=== PATIENT | male | born 1965 | race Caucasian/White ===

== ENCOUNTER 2024-05-15 04:17 | Emergency (ER) | payer MEDICAID, SELFPAY ==
--- NOTE | 2024-05-15 04:23 | XR_ITS ---
Examination: Duplex scan of the lower extremity, unilateral left complete Date and time of exam: May 15, 2024 at 0443 hrs. Indications: Onset left lower leg pain beginning this week Technique: Duplex scan of the extremity veins using B-mode/grayscale imaging and Doppler spectral analysis and color flow Attention is directed to internal echogenicity, compression and augmentation involving these veins, color flow assessment, spectral analysis Findings: Major deep venous structures in the extremity demonstrate normal course and caliber. There is no evidence of deep vein thrombosis. Normal color flow and spectral analysis Impression: Negative for DVT..
--- NOTE | 2024-05-15 04:23 | PD.EDRME ---
Rapid Medical Screening Exam RME Arrival date/time: 05/15/24 04:17 58M with history of HTN and BPH presents to ED with 4 days of worsening L low back pain that radiates down LLE. Patient denies SOB and fall/trauma. Chief Complaint: Back Pain/Injury
[2024-05-15 04:24] VITALS: BP 152/95; PULSE 63; RESP 19; TEMP 36.5; O2SAT 97; BMI 27.3
[2024-05-15] MEDS: GABAPENTIN 300 MG CAPSULE PO (05:09)
[2024-05-15] MEDS: KETOROLAC INJ 60 MG/2 ML VIAL IM (05:10)
--- NOTE | 2024-05-15 05:56 | PRELIM_ITS ---
Left lower extremity venous Doppler ultrasound. May 15, 2024 0443 hoursClinical history: r/o DVT Technique: Duplex scan of the left lower extremity deep venous systems was performed utilizing 2D gra yscale imaging, Doppler spectral analysis and color flow Doppler and with compression.Comparison: No prior study is available for comparison. Findings:Monteiro scale, color flow and spectral Doppler evaluat ion of the left lower extremity deep veins was performed.The common femoral, superficial femoral and popliteal veins are patent and compressible. Normal respiratory variation is noted. There is no evide nce of occlusive or nonocclusive thrombus. The peroneal and posterior tibial veins are patent.The gre at saphenous vein is patent and compressible at the level of the saphenofemoral junction.Impression:N o sonographic evidence of deep venous thrombosis in the left lower extremity. Report Electronically S igned By: Abraham Acosta 05/15/2024 5:56:30 AM [EST]
--- NOTE | 2024-05-15 06:53 | PD.EDBACK ---
ED Back Injury Pain RME/HPI General Chief Complaint: Back Pain/Injury Stated Complaint: LEFT LOWER BACK PAIN RADIATING TO LEG Time Seen by Provider: 05/15/24 06:31 Source: patient Arrival date/time: 05/15/24 04:17 This is a 58-year-old male who presents to the emergency department with complaints of left posterior thigh and calf pain for 4 days. Patient states his pain originates on the left buttocks and radiates down his leg. Denies any lower back or left leg injury. Patient did not attempt any interventions or take any OTC medications prior to ED visit. Patient denies any other associated symptoms or aggravating factors. No modifying factors, no radiation, no migration. Limitations: no limitations RME / HPI RME / HPI Narrative: 05/15/24 04:17 58M with history of HTN and BPH presents to ED with 4 days of worsening L low back pain that radiates down LLE. Patient denies SOB and fall/trauma. Related Data Home Medications ?Medication ?Instructions ?Recorded ?Confirmed aspirin 81 mg tablet,delayed 81 mg PO QDAY 12/05/23 02/17/24 release lisinopril 20 mg tablet 20 mg PO QDAY 12/05/23 02/17/24 tamsulosin 0.4 mg capsule 0.4 mg PO QHS 12/05/23 02/17/24 Previous Rx's ?Medication ?Instructions ?Recorded gabapentin 100 mg capsule 100 mg PO TID PRN leg pain #20 caps 05/15/24 ibuprofen 600 mg tablet 600 mg PO Q8H PRN pain #30 tabs 05/15/24 Allergies Allergy/AdvReac Type Severity Reaction Status Date / Time NKA* Allergy Uncoded 05/15/24 04:20 Review of Systems Review of Systems Systems Reviewed: All systems reviewed, normal except as documented Narrative Review of Systems: Gen: No fever, no chills, no weight loss EYES: No discharge, no visual changes, no pain HEENT: No ear pain, no congestion, no sore throat PULM: No shortness of breath, no cough, no congestion CV: No chest pain, no dyspnea on exertion, no palpitations GI: No nausea, no vomiting, no diarrhea, no pain, no constipation : No frequency, no urgency, no dysuria Musc/skel: No joint pain, Left buttock pain Skin: No rash Psyc: No hallucinations, no depression Heme/Lymph: No easy bleeding or bruising tendencies Neuro: No weakness, no headache ED Exam General Limitations: Present no limitations General appearance: Present alert and in no apparent distress Head Head exam: Present atraumatic Eye Eye exam: Present normal appearance, PERRL and EOMI ENT ENT exam: Present normal exam, normal oropharynx and mucous membranes moist Neck Neck exam: Present normal inspection, full ROM and trachea midline Chest Chest inspection: Present normal inspection and symmetric chest wall rise Respiratory Respiratory exam: Present normal lung sounds bilaterally Cardiovascular Cardiovascular exam: Present regular rate, normal rhythm and normal heart sounds Abdominal Exam Abdominal exam: Present soft and normal bowel sounds Extremities Exam Extremities exam: Present normal inspection and full ROM Back Exam Back exam: Present normal inspection and full ROM Neurological Exam Neurological exam: Present alert, oriented X3 and CN II-XII intact Psychiatric Psychiatric exam: Present normal affect and normal mood Skin Skin exam: Present warm, dry, intact and normal color Course Quality Measures none Orders Category Date Time Status US venous doppler LE LT Stat Exams 05/15/24 04:23 Taken Gabapentin [Neurontin] Med 05/15/24 05:02 Discontinued 300 mg PO X1 ONE Ketorolac Inj [Toradol Inj] Med 05/15/24 05:02 Discontinued 60 mg IM X1 ONE Vital Signs Vital signs: Vital Signs Temperature 97.7 F 05/15/24 04:24 Pulse Rate 63 05/15/24 04:24 Respiratory Rate 19 05/15/24 04:24 Blood Pressure 152/95 H 05/15/24 04:24 Pulse Oximetry (%) 97 05/15/24 04:24 Oxygen Delivery Method Room Air 05/15/24 04:24 Back Pain / Injury MDM Narrative MDM Narrative:: 58-year-old male was evaluated in the emergency department with complaints of left buttocks pain that radiates down to his left leg. With some mild calf pain. An ultrasound for rule out DVT was ordered by previous provider. Which was negative. Patient was given pain medication resolving his pain his pain is most likely from sciatica. Advised we will discharge him home with some gabapentin and NSAID follow-up with his PCP if his symptoms worsen he will need a MRI outpatient. Patient verbalizes understanding strict ER precautions given. Patient data External records reviewed:: [facility] previous records Clinical information provided by:: patient Social determinants that could affect healthcare access:: none Patient has the following chronic illnesses:: well hypertension, BPH How is presenting disease/condition affected by chronic disease/condition?: uneffected by Evaluation data The following diagnostics were reviewed and interpreted by me:: radiology exam(s) Lab and/or radiology exams considered but not ordered:: considered lumbar x-ray however patient not complaining of lower back pain today. Interpretation Summary: See ultrasound report Medications / Prescriptions Medications or Prescriptions considered but not ordered:: no Medication administrations:: Medication Administration History Discontinued Medications Gabapentin (Gabapentin 300 Mg Capsule) 300 mg PO X1 ONE Stop: 05/15/24 05:03 Last Admin: 05/15/24 05:09 Dose: 300 mg Documented By: JUDD Ketorolac Tromethamine (Ketorolac Inj 60 Mg/2 Ml Vial) 60 mg IM X1 ONE Stop: 05/15/24 05:03 Last Admin: 05/15/24 05:10 Dose: 60 mg Documented By: JUDD all medications administered and effective Consultations Consultation(s) initiated? (list below): No Diagnosis Differential diagnosis back pain/injury: lumbar radiculopathy, sciatica, strain of lumbar region and other ( left leg DVT) Most likely diagnosis given after review of the tests above:: lumbar radiculopathy and sciatica left leg Admission Indicated Admission indicated?: not indicated Admission Request Was there a request for admission?: No Disposition Plan Disposition Plan: Discharge Discharge Attestation Discharge Attestation: The patient and all family members were given an opportunity to ask questions and understood the discharge instructions. Discharge instructions specifically effects, indications for sooner follow up or return to the emergency department, and the expected course of current diagnosis. Patient condition: Stable Discharge Plan Plan Patient Disposition: HOME (Self Care) Patient condition on transfer: Stable Prescriptions/Referrals Prescriptions/Med Rec: New gabapentin 100 mg capsule 100 mg PO TID PRN (Reason: leg pain) Qty: 20 0RF ibuprofen 600 mg tablet 600 mg PO Q8H PRN (Reason: pain) Qty: 30 0RF No Action tamsulosin 0.4 mg capsule 0.4 mg PO QHS aspirin 81 mg tablet,delayed release (DR/EC) 81 mg PO QDAY lisinopril 20 mg tablet 20 mg PO QDAY Referrals: Christelle Marx FNP [Primary Care Provider] - In 1 week Problem List Clinical Impression: Lumbar radiculopathy, Sciatica Patient/Caregiver Discharge Instructions Discharge Activity: activity as tolerated Education Materials: ED Sciatica Additional Instructions: Please follow-up with your primary doctor. Take medications as directed. reTurn to the emergency department with any worsening symptoms or change in condition. Print Language: Wallisian Stand Alone Forms: Viky Award Info., Patient Portal Info Letter PA/AGRONOMY LOCATION MANAGER Supervising Physician PA/AGRONOMY LOCATION MANAGER Supervising Physician: Dr. Schneider
[2024-05-15 07:03] VITALS: RESP 18
== END 2024-05-15 07:04 | disposition home or self-care (01) ==
PROVIDERS: Emergency Provider Emergency Medicine; PCP Registered Nurse Community Health
DX: M54.16 Radiculopathy, lumbar region (principal)
CPT/HCPCS: 93971; 96372; 99284; J1885; A9270

== ENCOUNTER → 2024-08-18 | Outpatient (BNVA) | payer MEDICAID, SELFPAY | END | disposition home or self-care (01) | PROVIDERS: PCP Registered Nurse Community Health; Referring Provider Registered Nurse Community Health; Visit Provider Physician Assistant | DX: N40.1 Benign prostatic hyperplasia with lower urinary tract symptoms (principal) | CPT/HCPCS: Q3014 ==

== ENCOUNTER → 2024-12-04 | Outpatient (BNVA) | payer MEDICAID, SELFPAY | END | disposition home or self-care (01) | PROVIDERS: PCP Registered Nurse Community Health; Referring Provider Registered Nurse Community Health; Visit Provider Urology | DX: N40.1 Benign prostatic hyperplasia with lower urinary tract symptoms (principal); N13.8 Other obstructive and reflux uropathy; Z87.440 Personal history of urinary (tract) infections; E66.9 Obesity, unspecified; Z68.36 Body mass index [BMI] 36.0-36.9, adult | CPT/HCPCS: 81003; 99212; G0463 ==

== ENCOUNTER 2025-03-12 16:56 | Emergency (ER) | payer MEDICAID, SELFPAY ==
[2025-03-12 16:58] VITALS: BMI 33.9
[2025-03-12 17:26] VITALS: BP 136/87; PULSE 95; RESP 20; TEMP 37; O2SAT 95
--- NOTE | 2025-03-12 17:42 | PD.EDANKLE ---
Lower Extremity Injury RME/HPI General Chief Complaint: Ankle/Foot Injury Stated Complaint: STEPPED ON NAIL, RIGHT FOOT INJURY Time Seen by Provider: 03/12/25 17:42 Source: patient Arrival date/time: 03/12/25 16:56 59-year-old male with a history of hypertension presents to the emergency room with a chief complaint of accidentally puncturing his right foot with a nail gun while at work today. Mode of arrival: ambulatory Limitations: no limitations Related Data Home Medications ?Medication ?Instructions ?Recorded ?Confirmed aspirin 81 mg tablet,delayed 81 mg PO QDAY 12/05/23 12/04/24 release lisinopril 20 mg tablet 20 mg PO QDAY 12/05/23 12/04/24 tamsulosin 0.4 mg capsule 0.4 mg PO QHS 12/05/23 12/04/24 Previous Rx's ?Medication ?Instructions ?Recorded gabapentin 100 mg capsule 100 mg PO TID PRN leg pain #20 caps 05/15/24 ibuprofen 600 mg tablet 600 mg PO Q8H PRN pain #30 tabs 05/15/24 amoxicillin 875 mg-potassium 1 tab PO BID 7 days #14 tabs 03/12/25 clavulanate 125 mg tablet Allergies Allergy/AdvReac Type Severity Reaction Status Date / Time No Known Allergies Allergy Verified 03/12/25 16:58 Review of Systems Review of Systems Systems Reviewed: All systems reviewed, normal except as documented Constitutional Constitutional: Reports system reviewed and no additional complaints, except as documented, Denies fatigue, Denies fever(s), Denies headache(s) and Denies weakness Eyes Eyes: Reports system reviewed and no additional complaints, except as documented, Denies blurry vision and Denies change in vision ENT Ears, Nose, Mouth, and Throat: Reports system reviewed and no additional complaints, except as documented, Denies otalgia, Denies headache(s), Denies nasal congestion, Denies throat swelling and Denies vertigo Cardiovascular Cardiovascular: Reports system reviewed and no additional complaints, except as documented, Denies chest pain, Denies dyspnea and Denies dyspnea on exertion Respiratory Respiratory: Reports system reviewed and no additional complaints, except as documented, Denies chest congestion, Denies cough, Denies dyspnea, Denies dyspnea on exertion and Denies wheezing Gastrointestinal Gastrointestinal: Reports system reviewed and no additional complaints, except as documented, Denies abdominal pain, Denies cramping, Denies nausea and Denies vomiting Genitourinary Genitourinary: Reports system reviewed and no additional complaints, except as documented, Denies dysuria and Denies hematuria Musculoskeletal Musculoskeletal: Reports system reviewed and no additional complaints, except as documented and Denies back pain Integumentary/Breasts Skin/Breast: Reports system reviewed and no additional complaints, except as documented and Reports wounds Neurologic Neurologic: Reports system reviewed and no additional complaints, except as documented, Denies confusion, Denies headache(s), Denies lack of coordination, Denies vertigo and Denies weakness Psychiatric Psychiatric: Reports system reviewed and no additional complaints, except as documented, Denies anxiety, Denies confusion, Denies depression, Denies paranoia, Denies suicidal ideation and Denies tactile hallucinations Endocrine Endocrine: Reports system reviewed and no additional complaints, except as documented and Denies fatigue Hematologic/Lymphatic Hematologic/Lymphatic: Reports system reviewed and no additional complaints, except as documented and Denies lymphadenopathy Allergic/Immunologic Allergic/Immunologic: Reports system reviewed and no additional complaints, except as documented, Denies throat swelling, Denies urticaria and Denies wheezing Past Medical History Social History SMOKING STATUS: Never smoker ED Exam General Limitations: Present no limitations General appearance: Present alert and in no apparent distress Head Head exam: Present atraumatic Eye Eye exam: Present normal appearance, PERRL and EOMI ENT ENT exam: Present normal exam, normal oropharynx and mucous membranes moist Neck Neck exam: Present normal inspection, full ROM and trachea midline Chest Chest inspection: Present normal inspection and symmetric chest wall rise Respiratory Respiratory exam: Present normal lung sounds bilaterally Cardiovascular Cardiovascular exam: Present regular rate, normal rhythm and normal heart sounds Abdominal Exam Abdominal exam: Present soft and normal bowel sounds Extremities Exam Extremities exam: Present normal inspection and full ROM Expanded Lower Extremity Exam Hip/Pelvis exam: Present normal inspection Upper leg exam: Present normal inspection Knee exam: Present normal inspection Lower leg exam: Present normal inspection Ankle exam: Present normal inspection Foot/toe exam: Present tenderness, swelling and puncture wound; Absent full ROM Top foot image:  1. The patient accidentally shot himself with a nail gun in the right foot. The puncture wound is at the top of the foot and goes through to the bottom of the foot. Patient states he removed the nail himself. Back Exam Back exam: Present normal inspection and full ROM Neurological Exam Neurological exam: Present alert, oriented X3 and CN II-XII intact Psychiatric Psychiatric exam: Present normal affect and normal mood Skin Skin exam: Present warm, dry, intact and normal color Course Quality Measures none Orders Category Date Time Status Wound Care NOW Care 03/12/25 17:39 Active TET,DIP/PERT AC (Adult)-Tdap [Boostrix Adult (Tdap) Med 03/12/25 17:39 Discontinued Vacc] 0.5 ml IMI .ONCE ONE Vital Signs Vital signs: Vital Signs Temperature 98.6 F 03/12/25 17:26 Pulse Rate 95 03/12/25 17:26 Respiratory Rate 20 03/12/25 17:26 Blood Pressure 136/87 H 03/12/25 17:26 Pulse Oximetry (%) 95 03/12/25 17:26 Oxygen Delivery Method Room Air 03/12/25 17:26 Extremity Injury, Lower MDM Narrative MDM Narrative:: 59-year-old male with a history of hypertension presents to the emergency room with a chief complaint of accidentally puncturing his right foot with a nail gun while at work today. Patient is hemodynamically stable and in no apparent distress Physical examination shows tenderness and pain to the patient's right foot. Patient states he was at work today and accidentally shot himself with a nail gun in his foot. The nail went through the foot and there is a puncture wound to the top of the foot into the bottom of the foot. Patient states after this occurred he took the nail out himself and came to the emergency room. Patient's tetanus shot was updated the wound was cleaned and irrigated and antibiotic is sent to the patient's pharmacy. The patient has full range of motion to the foot and has full sensation. Patient was discharged and educated to follow-up with primary care provider in the next 24 to 48 hours and return to the emergency room for any evidence of worsening signs or symptoms Patient data External records reviewed:: [facility] previous records Clinical information provided by:: patient Social determinants that could affect healthcare access:: none Patient has the following chronic illnesses:: No chronic illness How is presenting disease/condition affected by chronic disease/condition?: no chronic disease Evaluation data The following diagnostics were reviewed and interpreted by me:: lab results and radiology exam(s) Lab and/or radiology exams considered but not ordered:: Labs and radiology results considered and ordered Interpretation Summary: N/A Medications / Prescriptions Medications or Prescriptions considered but not ordered:: Medication given Medication administrations:: Medication Administration History Discontinued Medications Diphtheria/Tetanus/Acell Pertussis (Diphth,Pertuss(Acell),Tet Vac 0.5 Ml Syr- Adult) 0.5 ml IMi .ONCE ONE Stop: 03/12/25 17:40 Medication given Consultations Consultation(s) initiated? (list below): No Diagnosis Extremity Injury, Lower Differential Diagnosis: puncture wound of foot and other (Cellulitis) Most likely diagnosis given after review of the tests above:: Puncture wound of foot Admission Indicated Admission indicated?: not indicated Admission Request Was there a request for admission?: No Disposition Plan Disposition Plan: Discharge Discharge Attestation Discharge Attestation: The patient and all family members were given an opportunity to ask questions and understood the discharge instructions. Discharge instructions specifically effects, indications for sooner follow up or return to the emergency department, and the expected course of current diagnosis. Patient condition: Stable Discharge Plan Plan Patient Disposition: HOME (Self Care) Discharge Disposition comment: Stable Prescriptions/Referrals Prescriptions/Med Rec: New amoxicillin-pot clavulanate 875-125 mg tablet 1 tab PO BID 7 Days Qty: 14 0RF No Action tamsulosin 0.4 mg capsule 0.4 mg PO QHS aspirin 81 mg tablet,delayed release (DR/EC) 81 mg PO QDAY lisinopril 20 mg tablet 20 mg PO QDAY gabapentin 100 mg capsule 100 mg PO TID PRN (Reason: leg pain) Qty: 20 0RF ibuprofen 600 mg tablet 600 mg PO Q8H PRN (Reason: pain) Qty: 30 0RF Problem List Clinical Impression: Puncture wound to foot Patient/Caregiver Discharge Instructions Education Materials: ED Puncture Wound (Foot) Additional Instructions: Please follow-up with your primary care provider in the next 24 to 48 hours Your tetanus vaccination was updated. Wound care was done on your wound. Antibiotics are sent to your pharmacy please pick them up and take them as indicated For any evidence of worsening signs or symptoms return to the emergency room immediately Print Language: Malian Stand Alone Forms: Viky Award Info., Work/School Release, Patient Portal Info Letter Vaccines Vaccines Given During Stay: TDaP PA/CUT OFF SAW GRADER Supervising Physician PA/CUT OFF SAW GRADER Supervising Physician: Dr. Hahn
[2025-03-12] MEDS: DIPHTH,PERTUSS(ACELL),TET VAC 0.5 ML SYR- ADULT IMi (17:53)
[2025-03-12] MEDS: KETOROLAC INJ 60 MG/2 ML VIAL 30 MG IM (17:54)
== END 2025-03-12 19:02 | disposition home or self-care (01) ==
LOC: SERX 18:07
PROVIDERS: Emergency Provider Emergency Medicine; PCP Registered Nurse Community Health
DX: S91.331A Puncture wound without foreign body, right foot, initial encounter (principal); W29.4XXA Contact with nail gun, initial encounter; Y99.0 Civilian activity done for income or pay; Z23 Encounter for immunization
CPT/HCPCS: 90471; 90715; 99284; J1885